=== PATIENT | female | born 1950 | race Caucasian/White ===

== ENCOUNTER 2017-06-21 11:08 | Emergency (ER) | payer MEDICARE, OTHER ==
[~2017-06-21] VITALS: Ht 162.6 cm; Wt 80.3 kg
[~2017-06-21 11:08] MED LIST: HYDROCHLOROTHIA25 MG PO; LASIX40 MG PO; LISINOPRIL40 MG PO; METFORMIN HCL500 MG PO; METOPROLOL TART25 MG PO; PANTOPRAZOLE SO40 MG PO; PLAVIX75 MG PO
--- OUTSIDE RECORDS SUMMARY | 2017-06-21 11:11 | XMS REPORT | Clinical Summary ---
Author Author MARGUERITE [facility] Address Unknown Phone Unavailable Care Team Providers Care Core Analysis Operator Name Role Phone PCP Unavailable Allergies Active Allergy Reactions Severity Noted Date Comments Codeine High 01/13/2016 Dicyclomine 01/13/2016 anxiety Current Medications Prescription Sig. Disp. Refills Start End Date Status Date metFORMIN (GLUCOPHAGE) Take 500 mg by mouth Active 500 MG tablet daily. pantoprazole (PROTONIX) Take 40 mg by mouth as Active 40 MG tablet needed. metoprolol (TOPROL-XL) 25 Take 25 mg by mouth Active MG 24 hr tablet daily. lisinopril Take 40 mg by mouth Active (PRINIVIL,ZESTRIL) 40 MG daily. tablet furosemide (LASIX) 40 MG Take 40 mg by mouth as Active tablet needed. gemfibrozil (LOPID) 600 Take 600 mg by mouth 2 Active MG tablet (two) times daily. Active Problems Problem Noted Date Atherosclerotic BREEZY (renal artery stenosis), unilateral (HCC) 01/13/2016 HTN (hypertension) 01/13/2016 DM (diabetes mellitus) type II controlled with renal manifestation (HCC) 12/2015 CAD (coronary artery disease), [place] coronary artery 01/13/2016 Hyperlipemia 01/13/2016 BREEZY (renal artery stenosis) (HCC) DM (diabetes mellitus) type II controlled with renal manifestation (HCC) Hyperlipidemia Social History Tobacco Use Types Packs/Day Years Used Date Former Smoker Alcohol Use Drinks/Week oz/Week Comments No Sex Assigned at Date Recorded Not on file Last Filed Vital Signs Not on file Plan of Treatment Not on file Implants Implanted 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
[2017-06-21] MEDS ORDERED: NALOXONE HCL INJ 0.4 MG/ML AMP ONE (11:26)
[2017-06-21] MEDS ORDERED: ASPIRIN 81 MG CHEW TAB PO ONE (12:00)
[2017-06-21 12:39] LABS: BASOPHILS # (AUTO) 0.1 (0.0-0.1); EOSINOPHILS # (AUTO) 0.2 (0.0-0.4); EOSINOPHILS % 2.2 % (0.0-6.0); HEMATOCRIT 36.8 % (34.2-44.1); HEMOGLOBIN 12.2 g/dL (12.0-16.0); LYMPHOCYTES # (AUTO) 2.5 (1.0-3.2); LYMPHOCYTES % 34.7 % (18.0-39.1); MEAN CORPUSCULAR HEMOGLOBIN 26.8 pg (28-32); MEAN CORPUSCULAR HGB CONC 33.2 g/dL (31-35); MEAN CORPUSCULAR VOLUME 80.7 fL (81-99); MONOCYTES # (AUTO) 0.6 (0.2-0.8); NEUTROPHILS # (AUTO) 3.9 (2.1-6.9); NEUTROPHILS % 53.5 % (38.7-80.0); PLATELET COUNT 343 x10e3/uL (140-360); RED BLOOD COUNT 4.56 x10e6/uL (3.6-5.1); RED CELL DISTRIBUTION WIDTH 13.9 % (11.7-14.4)
[2017-06-21 12:42] LABS: BILIRUBIN,URINE NEGATIVE (NEGATIVE); KETONES,URINE NEGATIVE (NEGATIVE); LEUKOCYTE ESTERASE ,URINE NEGATIVE (NEGATIVE); NITRITE,URINE NEGATIVE (NEGATIVE); PROTEIN,URINE DIPSTICK NEGATIVE (NEGATIVE); URINE UROBILINOGEN 0.2 mg/dL (0.2 - 1)
[2017-06-21 12:50] LABS: CLARITY,URINE CLEAR (CLEAR); COLOR,URINE YELLOW (YELLOW)
[2017-06-21 12:56] LABS: INR 0.98; PROTHROMBIN TIME 12.2 seconds (11.9-14.5)
[2017-06-21 12:57] LABS: PARTIAL THROMBOPLASTIN TIME 25.2 seconds (23.8-35.5)
[2017-06-21 13:00] LABS: EPITHELIAL CELLS,URINE RARE /LPF; TRANSITIONAL EPI CELLS,URINE FEW; WBC,URINE (MAN) 0-5 /HPF (0-5)
[2017-06-21 13:04] LABS: ALANINE AMINOTRANSFERASE 39 IU/L (0-55); ALBUMIN 4.4 g/dL (3.5-5.0); ALBUMIN/GLOBULIN RATIO 1.2 (0.8-2.0); ALKALINE PHOSPHATASE 56 IU/L (40-150); ANION GAP 12.4 mmol/L (8-16); BLOOD UREA NITROGEN 12 mg/dL (7-26); BUN/CREATININE RATIO 14 (6-25); CALCIUM 9.3 mg/dL (8.4-10.2); CARBON DIOXIDE 27 mmol/L (22-29); CHLORIDE 97 mmol/L (98-107); CREATINE KINASE 98 IU/L (29-168); CREATININE, SERUM 0.83 mg/dL (0.57-1.11); EST GLOMERULAR FILTRATION RATE > 60 ML/MIN (60-); GLUCOSE 91 mg/dL (74-118); POTASSIUM 3.4 mmol/L (3.5-5.1); SODIUM 133 mmol/L (136-145)
--- NOTE | 2017-06-21 13:46 | Diagnostic Imaging Report ---
PROCEDURE: A single AP view of the chest. COMPARISON: Patients [facility], , CHEST SINGLE (PORTABLE), 10/09/2016, 17:17. INDICATIONS: SHORTNESS OF BREATH, HEART PALPITATIONS FINDINGS: Lines/tubes: None. Lungs: The lungs are well inflated and grossly clear. There is no evidence of pneumonia or pulmonary edema. Pleura: There is no pleural effusion or pneumothorax. Heart and mediastinum: Cardiac silhouette is unremarkable. Pulmonary vasculature is normal. Bones: No acute bony abnormality. IMPRESSION: 1. No acute cardiopulmonary abnormalities. Rolo Mcnamara M.D. Dictated by: Rolo Mcnamara M.D. on 06/21/2017 at 13:46 Electronically approved by: Rolo Mcnamara M.D. on 06/21/2017 at 13:46
== END 2017-06-21 14:28 | disposition home or self-care (01) ==
LOC: ER 11:08
DX: R00.2 Palpitations (principal); I10 Essential (primary) hypertension; E11.9 Type 2 diabetes mellitus without complications; K21.9 Gastro-esophageal reflux disease without esophagitis
CPT/HCPCS: 36415; 71045; 80053; 81001; 82550; 82553; 83880; 84484; 85025; 85379; 85610; 85730; 87086; 87400; 93005; 99284; J2310

== ENCOUNTER → 2018-07-12 | Outpatient (CLI) | payer MEDICARE ==
[~2018-07-12] MED LIST changes: +IOPAMIDOL 370 MG/ML 200 ML INFUS..BTL INJ ONE; +SODIUM CHLORIDE 0.9% 50ML 50 ML ONE
[2018-07-12 08:56] LABS: BLOOD UREA NITROGEN 14 mg/dL (7-26); BUN/CREATININE RATIO 17 (6-25); CREATININE, SERUM 0.82 mg/dL (0.57-1.11); EST GLOMERULAR FILTRATION RATE > 60 ML/MIN (60-)
--- NOTE | 2018-07-12 10:47 | Diagnostic Imaging Report ---
EXAM: CTA Abdomen and Pelvis with contrast INDICATION: Renal artery stenosis status post stent. COMPARISON: None. TECHNIQUE: Abdomen and pelvis were scanned utilizing a multidetector helical scanner from the lung base to the pubic symphysis after administration of IV contrast. Coronal and sagittal reformations were obtained. Routine protocol was performed. Scan was performed when during arterial phase. CT angiogram protocol as performed. 3D reformats were performed and reviewed. IV CONTRAST: 100 cc of Isovue 370. ORAL CONTRAST: Water COMPLICATIONS: None RADIATION DOSE: Total DLP: 645.6 mGy*cm Dose modulation, iterative reconstruction, and/or weight based adjustment of the mA/kV was utilized to reduce the radiation dose to as low as reasonably achievable. FINDINGS: VASCULAR FINDINGS: Abdominal aorta and proximal branches: No evidence of abdominal aortic aneurysm or dissection. The abdominal aorta at the diaphragmatic hiatus measures up to 2.2 cm, at the renal arteries measures up to 1.7 cm, and infrarenally measures 1.3 cm. There is a left proximal renal stent which appears widely patent with normal opacification of the distal renal artery. There are single bilateral renal arteries. No evidence of stenosis within the bilateral renal arteries. There are moderate atherosclerotic changes of the abdominal aorta and branch vessels. The celiac artery, SMA, and SHOBHA are patent. The common iliac, external and internal iliac, common femoral and proximal superficial and deep femoral arteries are patent. Mild multifocal stenoses of the bilateral internal iliac arteries. NON-VASCULAR: LINES and TUBES: None. LOWER THORAX: Unremarkable HEPATOBILIARY: Diffuse fatty liver. No evidence of focal lesion. No intrahepatic biliary ductal dilation. Mildly dilated common bile duct, measuring up to 1 cm likely reflects postcholecystectomy reservoir effect. SPLEEN: No splenomegaly. PANCREAS: No evidence of focal mass. Minimal prominence of the pancreatic duct does not meet size criteria for pathologic enlargement. No evidence of ductal cut off. ADRENALS: No adrenal nodules KIDNEYS/URETERS: Kidneys enhance symmetrically. No evidence of hydronephrosis, solid mass, or stone. GI TRACT: No evidence of wall thickening or distension. Appendix is normal. There is scattered colonic diverticulosis without CT evidence of diverticulitis. PELVIC ORGANS/BLADDER: Unremarkable. LYMPH NODES: No lymphadenopathy. PERITONEUM / RETROPERITONEUM: No free air or fluid. BONES AND SOFT TISSUES: No acute osseous abdomen. No suspicious lytic or blastic regions. CONCLUSION: Patent left renal artery stent without evidence of renal artery stenosis. No evidence of abdominal aortic aneurysm or dissection. Fatty liver. Status post cholecystectomy. Signed by: Dr. Prosper Powers MD on 07/12/2018 10:44 AM
== END ==
LOC: CT 07:29
PROVIDERS: ATTEND Internal Medicine
DX: I70.1 Atherosclerosis of renal artery (principal)
CPT/HCPCS: 36415; 74174; 82565; 84520; Q9967